=== PATIENT | female | born 1975 | race Caucasian/White ===

== ENCOUNTER 2018-10-04 18:49 | Emergency (ER) | payer OTHER ==
--- NOTE | 2018-10-04 19:07 | UC ---
Knee Pain HPI - HPI Summary HPI Summary: 43-year-old female who was holding the collar of a [place] dog and while he was pulling at her she somehow strained her left knee. She states that she did fall onto the grass however got up and walked immediately after. She complains of pain to the [place] aspect of her left knee. She is ambulatory however is using crutches as well. She states she feels like her knee might give out. - History of Current Complaint Stated Complaint: L KNEE INJ Time Seen by Provider: 10/04/18 18:52 Hx Obtained From: Patient ?: No Onset/Duration: Sudden Onset Severity Initially: Mild Severity Currently: Mild Location Of Injury: Left knee Character: Aching Aggravating Factor(s): Movement, Weight Bearing Alleviating Factor(s): Rest Associated Signs And Symptoms: Positive: Negative Able to Bear Weight: Yes - Allergies/Home Medications Allergies/Adverse Reactions: Allergies Allergy/AdvReac Type Severity Reaction Status Date / Time No Known Allergies Allergy Verified 10/04/18 19:05 Home Medications: Home Medications Ibuprofen TAB* [Advil TAB*] 200 mg PO Q6H PRN 10/04/18 [History Confirmed ] PMH/Surg Hx/FS Hx/Imm Hx Previously Healthy: Yes - Family History Known Family History: Positive: Non-Contributory - Social History Occupation: Employed Full-time Lives: With Family Review of Systems All Other Systems Reviewed And Are Negative: Yes Motor: Positive: Negative Neurovascular: Positive: Negative Musculoskeletal: Positive: Negative, Other: - Mild pain on the lateral aspect of her left knee mostly with complete flexion. Physical Exam Triage Information Reviewed: Yes Appearance: Well-Appearing, No Pain Distress, Well-Nourished Vital Signs Reviewed: Yes Musculoskeletal: Positive: Strength Intact, ROM Intact, No Edema, Other: - Full range of motion, good peripheral pulses neuro sensation capillary refill. Knee itself is nontender on palpation, knee and patellar ligaments are intact. No swelling or bruising is noted. No deformity is noted Neurological Exam: Normal Psychological Exam: Normal Skin Exam: Normal Knee Pain Course/Dx - Course Course Of Treatment: Knee x-ray: Negative as interpreted by myself and Dr. Chávez. The patient refused a knee immobilizer stating she has one at home. She has her own crutches. I told her no work for 2 days and to elevate and ice intermittently however she states that she has to work. She is to follow-up with the orthopedist if no improvement in 2 or 3 days. - Differential Dx/Diagnosis Provider Diagnosis: Left knee sprain Discharge - Sign-Out/Discharge Documenting (check all that apply): Patient Departure All imaging exams completed and their final reports reviewed: No - Discharge Plan Condition: Fair Disposition: HOME Patient Education Materials: Knee Sprain (DC) Referrals: SANTOSH Mckeon [Primary Care Provider] - Rochelle Weiner MD [Medical Doctor] - Additional Instructions: Keep the knee immobilizer in place until you are followed up by the orthopedist. May bear weight as pain permits. Tylenol every 4 hours and Motrin every 8 hours for pain. Apply ice and elevate over the next few days. - Billing Disposition and Condition Condition: FAIR Disposition: Home - Attestation Statements Provider Attestation: I was available for consult. This patient was seen by the JOHNNY. The patient was not presented to , seen by or examined by ut -Sis Chávez MD
[2018-10-04 19:16] VITALS: BP 131/69
--- NOTE | 2018-10-05 13:58 | ED ---
Progress - Progress Note Progress Note: Knee Xray: No acute findings per final read. Course/Dx - Diagnoses Provider Diagnoses: Left knee sprain Discharge - Sign-Out/Discharge Documenting (check all that apply): Patient Departure All imaging exams completed and their final reports reviewed: Yes - Discharge Plan Condition: Fair Disposition: HOME Patient Education Materials: Knee Sprain (DC) Referrals: SANTOSH Mckeon [Primary Care Provider] - Rochelle Weiner MD [Medical Doctor] - Additional Instructions: Keep the knee immobilizer in place until you are followed up by the orthopedist. May bear weight as pain permits. Tylenol every 4 hours and Motrin every 8 hours for pain. Apply ice and elevate over the next few days. - Billing Disposition and Condition Condition: FAIR Disposition: Home
== END 2018-10-04 19:59 | disposition home or self-care (01) ==
LOC: UCCORT 18:49
DX: S83.92XA Sprain of unspecified site of left knee, initial encounter (principal); X50.0XXA Overexertion from strenuous movement or load, initial encounter; Y93.89 Activity, other specified; Y92.9 Unspecified place or not applicable
CPT/HCPCS: 99211; G0463